=== PATIENT | male | born 1995 | race Caucasian/White ===

== ENCOUNTER 2021-04-21 17:19 | Emergency (ER) | payer BC ==
[2021-04-21] MEDS ORDERED: Ondansetron 4 MG Tab.DIS PO ONE (18:47)
[2021-04-21] MEDS ORDERED: Sodium Chloride 0.9% 10 ML Syringe FLUSH PRN (18:51)
[2021-04-21] MEDS ORDERED: Ondansetron 4 MG/2 ML SDV IVPUSH ONE (18:52)
[2021-04-21] MEDS: Sodium Chloride 0.9% 10 ML Syringe FLUSH ONE ×2 (19:11→19:47)
[2021-04-21] MEDS ORDERED: Iopamidol 612 MG/ML 100 ML Bottle IV SCH (19:15)
--- NOTE | 2021-04-21 20:25 | EDM.PDOC ---
ED HPI GENERAL MEDICAL PROBLEM - General Chief Complaint: Abdominal Pain Stated Complaint: VOMITNG, DIARRHEA Time Seen by Provider: 04/21/21 18:43 Source of Information: Reports: Patient History Limitations: Reports: No Limitations - History of Present Illness INITIAL COMMENTS - FREE TEXT/NARRATIVE: Celso is a 25-year-old male who works at [employer] who presents to the ED for evaluat ion of acute onset of epigastric pain, nausea, vomiting, and diarrhea that started 3 days ago. Patient has been unable to eat much although he is able to take fluids. He denies any chills or fever except when he had emesis which point he becomes diaphoretic. He is otherwise a healthy individual. He is not around anyone else who has been ill. He denies any abdominal bloating. He is not had any hematochezia, hematemesis, or melena. - Related Data Allergies Allergy/AdvReac Type Severity Reaction Status Date / Time No Known Allergies Allergy Verified 04/21/21 18:03 Home Meds: Home Meds NK [No Known Home Meds] 04/21/21 [History] Past Medical History - Past Health History Medical/Surgical History: Denies Medical/Surgical History Social & Family History - Tobacco Use Tobacco Use Status *Q: Never Tobacco User ED ROS GENERAL - Review of Systems Review Of Systems: See Below Constitutional: Reports: Diaphoresis HEENT: Reports: No Symptoms Respiratory: Reports: No Symptoms Cardiovascular: Reports: No Symptoms Endocrine: Reports: No Symptoms GI/Abdominal: Reports: Abdominal Pain (Epigastric), Diarrhea, Nausea, Vomiting. Denies: Hematemesis, Hematochezia : Reports: No Symptoms Musculoskeletal: Reports: No Symptoms Skin: Reports: No Symptoms Neurological: Reports: No Symptoms Psychiatric: Reports: No Symptoms Hematologic/Lymphatic: Reports: No Symptoms Immunologic: Reports: No Symptoms ED EXAM, GI/ABD - Physical Exam Exam: See Below Exam Limited By: No Limitations General Appearance: Alert, No Apparent Distress Throat/Mouth: Normal Inspection, Normal Lips, Normal Oropharynx, Normal Voice, No Airway Compromise Head: Atraumatic, Normocephalic Neck: Normal Inspection, Supple, Non-Tender, Full Range of Motion. No: Lymphadenopathy (R), Lymphadenopathy (L) Respiratory/Chest: No Respiratory Distress, Lungs Clear, Normal Breath Sounds Cardiovascular: Normal Peripheral Pulses, Regular Rate, Rhythm, No Murmur GI/Abdominal Exam: Normal Bowel Sounds, Soft, Tender (Epigastric tenderness to palpation). No: Guarding, Rebound Back Exam: Normal Inspection Extremities: Normal Inspection Neurological: Alert, Oriented, Normal Cognition, No Motor/Sensory Deficits Psychiatric: Normal Affect, Normal Mood Skin Exam: Warm, Dry Lymphatic: No Adenopathy Course - Vital Signs Last Recorded V/S: Last Vital Signs Temp 36.4 C 04/21/21 18:09 Pulse 78 04/21/21 18:09 Resp 16 04/21/21 18:09 BP 133/87 04/21/21 18:09 Pulse Ox 96 04/21/21 18:09 - Orders/Labs/Meds Orders: Active Orders 24 hr Category Date Time Status Abdomen Pelvis w Cont [CT] Stat Exams 04/21/21 18:51 Taken Iopamidol [Isovue-300 (61%)] Med 04/21/21 19:15 Active 100 ml IV . DIRECTED Sodium Chloride 0.9% [Normal Saline] 70 ml Med 04/21/21 19:15 Active IV ASDIRECTED Sodium Chloride 0.9% [Saline Flush] Med 04/21/21 18:51 Active 10 ml FLUSH ASDIRECTED PRN Saline Lock Insert [OM.PC] Routine Oth 04/21/21 18:51 Ordered Medication Orders Sodium Chloride (Normal Saline) 70 mls @ 3 mls/sec IV ASDIRECTED DAVID Last Admin: 04/21/21 19:47 Dose: 3 mls/sec Documented by: THELASH Iopamidol (Iopamidol 612 Mg/Ml 100 Ml Bottle) 100 ml IV . DIRECTED [facility] Last Admin: 04/21/21 19:47 Dose: 100 ml Documented by: THELASH Sodium Chloride (Sodium Chloride 0.9% 10 Ml Syringe) 10 ml FLUSH ASDIRECTED PRN PRN Reason: Keep Vein Open Labs: Laboratory Tests 04/21/21 04/21/21 Range/Units 19:01 19:01 WBC 5.9 (4.5-11.0) K/uL RBC 5.50 (4.30-5.90) M/uL Hgb 17.1 H (12.0-15.0) g/dL Hct 50.7 (40.0-54.0) % MCV 92 (80-98) fL MCH 31 (27-31) pg MCHC 34 (32-36) % Plt Count 241 (150-400) K/uL Neut % (Auto) 68.4 H (36-66) % Lymph % (Auto) 20.5 L (24-44) % Waller % (Auto) 9.2 H (2-6) % Eos % (Auto) 1.4 L (2-4) % Baso % (Auto) 0.5 (0-1) % Sodium 141 (140-148) mmol/L Potassium 4.3 (3.6-5.2) mmol/L Chloride 101 (100-108) mmol/L Carbon Dioxide 28 (21-32) mmol/L Anion Gap 12.1 (5.0-14.0) mmol/L BUN 15 (7-18) mg/dL Creatinine 0.9 (0.8-1.3) mg/dL Est Cr Clr Drug Dosing 119.35 mL/min Estimated GFR (MDRD) > 60 (>60) Glucose 101 (74-106) mg/dL Calcium 9.3 (8.5-10.1) mg/dL Total Bilirubin 1.0 (0.2-1.0) mg/dL AST 22 (15-37) U/L ALT 35 (12-78) U/L Alkaline Phosphatase 103 (46-116) U/L Total Protein 8.1 (6.4-8.2) g/dL Albumin 4.3 (3.4-5.0) g/dL Globulin 3.8 H (2.3-3.5) g/dL Albumin/Globulin Ratio 1.1 L (1.2-2.2) Lipase 85 (73-393) U/L Meds: Medications Generic Name Dose Route Start Last Admin Trade Name Freq PRN Reason Stop Dose Admin Sodium Chloride 70 mls @ 3 mls/sec 04/21/21 19:15 04/21/21 19:47 Normal Saline IV 3 mls/sec ASDIRECTED DAVID Administration Iopamidol 100 ml 04/21/21 19:15 04/21/21 19:47 Iopamidol 612 Mg/Ml 100 Ml Bottle IV 100 ml . DIRECTED DAVID Administration Sodium Chloride 10 ml 04/21/21 18:51 Sodium Chloride 0.9% 10 Ml Syringe FLUSH ASDIRECTED PRN Keep Vein Open Discontinued Medications Generic Name Dose Route Start Last Admin Trade Name Freq PRN Reason Stop Dose Admin Ondansetron HCl 4 mg 04/21/21 18:47 Ondansetron 4 Mg Tab.Dis PO 04/21/21 18:48 ONETIME ONE Ondansetron HCl 4 mg 04/21/21 18:52 04/21/21 19:12 Ondansetron 4 Mg/2 Ml Sdv IVPUSH 04/21/21 18:53 4 mg ONETIME ONE Administration Sodium Chloride 10 ml 04/21/21 19:04 04/21/21 19:47 Sodium Chloride 0.9% 10 Ml Syringe FLUSH 04/21/21 19:05 10 ml ONETIME ONE Administration - Re-Assessments/Exams Free Text/Narrative Re-Assessment/Exam: 04/21/21 20:22 reviewed the patient's labs showing a normal CBC with the exception of a hemoglobin of 17.1 and hematocrit of 50.7. This is likely volume contraction due to decreased fluid intake. His comprehensive metabolic panel is normal. His lipase is normal at 85. CT of the abdomen and pelvis was performed with contrast and shows some mild wall thickening in the small intestine likely due to an acute enteritis. My plan is to put the patient on Zofran for nausea control and have him follow the BRAT diet. 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 This is likely viral in nature given his CBC. Patient should take frequent small amounts of fluids to remain hydrated. Indications return to the ED were discussed and he was discharged in satisfactory condition. Departure - Departure Time of Disposition: 20:25 Disposition: Home, Self-Care 01 Clinical Impression: Viral gastroenteritis due to Avery-like agent - Discharge Information Instructions: Viral Gastroenteritis, Adult, [id number] Referrals: PCP,None [Primary Care Provider] - Care Plan Goals: Your work-up today has shown that you have a viral stomach flu causing your nausea, vomiting, diarrhea, and abdominal pain. I am going to start you on a medication to help with the nausea so that you are able to continue to drink fluids and remain hydrated and eat bland food. I recommend following the BRAT diet which stands for bananas, rice, applesauce, and toast which are items that are easier to digest. 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 I have provided you a work note stating this. Make sure that yo u wash your hands thoroughly after using the bathroom as reinfection as possible. Sepsis Event Note (ED) - Evaluation Sepsis Screening Result: No Definite Risk - Focused Exam Vital Signs: Vital Signs Temp Pulse Resp BP Pulse Ox 04/21/21 18:09 36.4 C 78 16 133/87 96 04/21/21 17:41 36.4 C 78 16 133/87 96 - Problem List & Annotations (1) Viral gastroenteritis due to Avery-like agent Status: Acute Priority: High Current Visit: Yes - Problem List Review Problem List Initiated/Reviewed/Updated: Yes - My Orders Last 24 Hours: My Active Orders 04/21/21 18:51 Abdomen Pelvis w Cont [CT] Stat Sodium Chloride 0.9% [Saline Flush] 10 ml FLUSH ASDIRECTED PRN Saline Lock Insert [OM.PC] Routine 04/21/21 19:15 Iopamidol [Isovue-300 (61%)] 100 ml IV . DIRECTED Sodium Chloride 0.9% [Normal Saline] 70 ml IV ASDIRECTED - Assessment/Plan Last 24 Hours: My Active Orders 04/21/21 18:51 Abdomen Pelvis w Cont [CT] Stat Sodium Chloride 0.9% [Saline Flush] 10 ml FLUSH ASDIRECTED PRN Saline Lock Insert [OM.PC] Routine 04/21/21 19:15 Iopamidol [Isovue-300 (61%)] 100 ml IV . DIRECTED Sodium Chloride 0.9% [Normal Saline] 70 ml IV ASDIRECTED
--- NOTE | 2021-04-21 20:29 | CRLCT ---
For Patients: As a result of the Century Cures Act, medical imaging exams and procedure reports are released immediately into your electronic medical record. You may view this report before your referring provider. If you have questions, please contact your health care provider. HISTORY: Epigastric abdominal pain. Vomiting and diarrhea. TECHNIQUE: Intravenous contrast enhanced CT of the abdomen and pelvis. 100 mL of intravenous contrast administered. COMPARISON: No prior. FINDINGS: No focal liver parenchymal abnormality. No biliary ductal dilatation. Gallbladder does not appear excessively distended. The spleen and adrenal glands are unremarkable. No focal pancreatic abnormality or acute peripancreatic inflammatory change. Symmetric nephrograms. No renal mass or hydronephrosis. Urinary bladder does not appear excessively distended. - No small bowel obstruction. No appendicitis. No diverticulitis. No fluid collection or free air. - The abdominal aorta appears unremarkable. - No infiltrate within the lung bases nor pleural effusion. - No acute bony abnormality. IMPRESSION: 1. No identified cause of the patient`s symptoms. 2. No acute disease. Dictated by Lucio Escudero MD @ 04/21/2021 8:28:56 PM Please note that all CT scans at this facility use dose modulation, iterative reconstruction, and/or weight-based dosing when appropriate to reduce radiation dose to as low as reasonably achievable. Dictated by: Lucio Escudero MD @ 04/21/2021 20:29:02 (Electronically Signed)
== END 2021-04-21 20:42 | disposition home or self-care (01) ==
LOC: JP.ED 17:19
DX: A08.11 Acute gastroenteropathy due to Norwalk agent (principal)
CPT/HCPCS: 36415; 74177; 80053; 83690; 85025; 96374; 99284; J2405; Q9967